=== PATIENT | male | born 1960 | race Caucasian/White ===

== ENCOUNTER 2018-01-19 10:22 | Emergency (ER) | payer OTHER ==
[~2018-01-19] VITALS: Ht 180.3 cm; Wt 83.9 kg
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
[2018-01-19] MEDS ORDERED: IBUPROFEN600 MG ORAL (12:05)
[2018-01-19] MEDS ORDERED: CYCLOBENZAPRINE10 MG ORAL (12:05)
[2018-01-19] MEDS ORDERED: LIDODERM700 M1 TOPIC (12:05)
[2018-01-19 12:22] VITALS: BP 148/103
== END 2018-01-19 12:25 | disposition home or self-care (01) ==
LOC: EMR 11:52
DX: S13.4XXA Sprain of ligaments of cervical spine, initial encounter (principal); V43.52XA Car driver injured in collision with other type car in traffic accident, initial encounter; Y92.410 Unspecified street and highway as the place of occurrence of the external cause; R51 Headache; M50.31 Other cervical disc degeneration, high cervical region
CPT/HCPCS: 70450; 72125; 99284